=== PATIENT | male | born 1985 | race Caucasian/White ===

== ENCOUNTER 2017-05-23 04:04 | Emergency (ER) | payer BC, OTHER ==
[2017-05-23] MEDS ORDERED: IPRATROPIUM/ALBUTEROL SULFATE 3 ML SOLUTION IH ONE (04:21)
[2017-05-23] MEDS ORDERED: OSELTAMIVIR PHOSPHATE 75 MG CAP ONE (05:10)
[2017-05-23 06:40] LABS: APPEARANCE,URINE Clear (CLEAR); BILIRUBIN,URINE Negative (NEGATIVE); COLOR,URINE Yellow (YELLOW); GLUCOSE, URINE (UA) Negative (NEGATIVE); KETONES,URINE Trace mg/dL (NEGATIVE); LEUKOCYTE ESTERASE ,URINE Negative (NEGATIVE); NITRATE,URINE Negative (NEGATIVE); OCCULT BLOOD,URINE Negative (NEGATIVE); PROTEIN,URINE Negative (NEGATIVE); UROBILINOGEN,URINE 0.2 mg/dL (0.2-1.0)
[2017-05-23 06:59] LABS: BACTERIA,URINE Few /HPF (None Seen); RBC,URINE 0-1 /HPF (0-1); SQUAMOUS EPITHELIAL CELL,UR 0-2 /LPF (0-2); WBC,URINE 0-1 /HPF (0-1)
== END 2017-05-23 07:05 | disposition home or self-care (01) ==
LOC: EDH 04:04
DX: J09.X2 Influenza due to identified novel influenza A virus with other respiratory manifestations (principal); J45.909 Unspecified asthma, uncomplicated
CPT/HCPCS: 81001; 87804; 94640; 99291

== ENCOUNTER 2024-01-19 11:34 | Emergency (ER) | payer SELFPAY ==
[~2024-01-19] VITALS: Ht 175.3 cm; Wt 88.5 kg
[2024-01-19] MEDS ORDERED: metoPROLOL tartRATE 1 MG/ML 5ML VIAL IV ONE (12:00)
[2024-01-19] MEDS: IBUPROFEN 800 MG TAB PO ONE (12:05)
[2024-01-19] MEDS: NEOMY SULF/BACITRA/POLYMYXIN B 1 EACH PACKET TP ONE (12:05)
[2024-01-19] MEDS: LIDOCAINE HCL 1% 20 ML VIAL INJ SCH (12:05)
[2024-01-19] MEDS: cePHALexin 500 MG CAPSULE PO ONE (12:05)
[2024-01-19] MEDS: BACITRACIN 1 EACH PACKET TP ONE (12:19)
[2024-01-19] MEDS ORDERED: CEPH500B PO (13:16)
[2024-01-19] MEDS ORDERED: IBUP-2077 PO (13:16)
[2024-01-19 13:30] VITALS: BP 124/72; PULSE 70; RESP 16; TEMP 97.9; O2SAT 69
== END 2024-01-19 13:37 | disposition home or self-care (01) ==
LOC: EDH 11:34
DX: S61.212A Laceration without foreign body of right middle finger without damage to nail, initial encounter (principal); X58.XXXA Exposure to other specified factors, initial encounter; Y93.89 Activity, other specified; Y92.89 Other specified places as the place of occurrence of the external cause; Y99.8 Other external cause status
CPT/HCPCS: 12002; 73130

== ENCOUNTER 2024-02-10 20:41 | Emergency (ER) | payer SELFPAY ==
[~2024-02-10] VITALS: Ht 175.3 cm; Wt 83.9 kg
[~2024-02-10 20:41] MED LIST: CEPH500B PO; IBUP-2077 PO
[2024-02-10] MEDS: acetaMINOPHEN 500 MG TABLET PO ONE (21:30)
[2024-02-10] MEDS: ibuPROFEN 800 MG TAB PO ONE (21:30)
[2024-02-10 21:36] VITALS: BP 138/76; PULSE 59; RESP 17; TEMP 98.3; O2SAT 98
== END 2024-02-10 21:48 | disposition home or self-care (01) ==
LOC: EDH 20:41
DX: S61.215A Laceration without foreign body of left ring finger without damage to nail, initial encounter (principal); W26.8XXA Contact with other sharp object(s), not elsewhere classified, initial encounter; Y93.89 Activity, other specified; Y92.89 Other specified places as the place of occurrence of the external cause; Y99.8 Other external cause status